=== PATIENT | male | born 2000 | race Caucasian/White ===

== ENCOUNTER 2020-06-20 16:15 | Emergency (ER) | payer MEDICAID ==
[~2020-06-20] VITALS: Ht 167.6 cm; Wt 117.9 kg
--- NOTE | 2020-06-20 16:45 | NUR ---
r elbow and r wrist pain s/p skateboarding accident. Patient a/ox4, breathing even and unlabored, no sob noted. Needs attended.
[2020-06-20] MEDS ORDERED: BACITRACIN ZINC OINT PACKET 1 EA PACKET TP ONE ×2 (16:59→17:00)
[2020-06-20] MEDS ORDERED: HYDROCODONE/APAP 5/325MG TABLET PO ONE (17:00)
[2020-06-20] MEDS ORDERED: ONDANSETRON 4 MG TAB.RAPDIS ONE (17:00)
[2020-06-20] MEDS ORDERED: IBUPROFEN 600 MG TABLET PO ONE (17:00)
[2020-06-20] MEDS ORDERED: ONDANSETRON 4 MG TAB.RAPDIS SL ONE (17:00)
[2020-06-20] MEDS ORDERED: TDAP [DIPH/PERTUSSIS/TET] 0.5 ML VIAL IM ONE ×2 (17:00)
[2020-06-20] MEDS ORDERED: HYDROCODONE/APAP 5/325MG TABLET ONE (17:00)
[2020-06-20] MEDS ORDERED: IBUPROFEN 600 MG TABLET ONE (17:00)
--- NOTE | 2020-06-20 17:00 | NUR ---
Wound care on left hand done.
[2020-06-20] MEDS ORDERED: IBUP-1955 PO (18:38)
[2020-06-20] MEDS ORDERED: HYDR-4275 PO (18:39)
--- NOTE | 2020-06-20 18:47 | NUR ---
SUGAR TONG SPLINT PLACED ON RIGHT ARM. Patient discharged to home in stable condition. Written and verbal after care instructions given. Patient verbalizes understanding of instruction.
[2020-06-20 18:48] VITALS: BP 110/78
== END 2020-06-20 18:48 | disposition home or self-care (01) ==
LOC: ER 16:28
DX: S52.611A Displaced fracture of right ulna styloid process, initial encounter for closed fracture (principal); S52.571A Other intraarticular fracture of lower end of right radius, initial encounter for closed fracture; S60.512A Abrasion of left hand, initial encounter; M25.521 Pain in right elbow; Z79.899 Other long term (current) drug therapy; V00.138A Other skateboard accident, initial encounter; Y93.51 Activity, roller skating (inline) and skateboarding; Y92.331 Roller skating rink as the place of occurrence of the external cause; Y99.8 Other external cause status
CPT/HCPCS: 29125; 73080; 73110; 90471; 90715; 99284; Q0162